=== PATIENT | female | born 1935 | race Caucasian/White ===

== ENCOUNTER → 2020-08-23 | Outpatient (CLI) | payer MEDICARE, OTHER ==
[~2020-08-23] MED LIST: ANAS1TAB2 PO; CALCTAB89 PO; DOXA1TAB41 PO; ESSETAB4 PO; FISH1000 PO; HYDR12CA PO; LORA-674 PO; LOSA50TA88 PO; METO1TAB87 PO; OMEP10CASR PO; PRAV80TA2 PO; TYLE650T38 PO; WARF4TAB52 PO; vitamin d PO
--- NOTE | 2020-08-23 12:01 | RADONC.CN ---
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 Berger. She has been dealing with persistent bleeding from her left lateral lumpectomy incision in the setting of anticoagulation for her PAF. She is seen today at the request of Dr. Casanova for consideration of adjuvant RT as she is not a chemotherapy candidate. Diagnosis/Treatment History Oncologic History 05/16/20 Screening mammogram 1.7 cm lesion in the left outer breast. 06/21/20 Core biopsy showing IDC grade 3 ER/OR/HER2+ 07/28/20 Lumpectomy without axillary staging (age and negative clinical exam) by Dr. Berger (We are obtaining the final path report, but per Dr. Casanova T1 negative margins) Breast history: Menses @ 11 1st @ 20 No HRT No OCP Menopause @ 49 Interval History Here today alone. Feels well. No postoperative pain aside from occasional fleeting discomfort in the left breast. There has been however continued oozing of blood from her lumpectomy incision. No swelling of the breast. Has been packed previously and pressure dressing applied. She continues to take coumadin for her A fib, which was diagnosed last year. Past Medical History: GERD HPL HTN PAF CAD Past Surgical History: D&C (remote) Tonsillectomy CABG Family History: Several maternal cousins with BC in their 50s-60s Social History: Never smoker Non drinker Allergies / Meds Allergies: Coded Allergies: Penicillins (Verified Allergy, Unknown, 08/23/20) Uncoded Allergies: environmental (Allergy, Mild, 08/23/20) Home Meds Active Scripts Anastrozole (Anastrozole) 1 Mg Tablet, 1 TAB PO DAILY for 30 Days, #30 TAB 5 Refills Prov:STEPHANIE CASANOVA MD 08/23/20 Reported Medications [vitamin d] No Conflict Check, 25 MG PO DAILY 08/23/20 Acetaminophen (Tylenol 8 Hour) 650 Mg Tablet.er, 650 MG PO PRN 08/23/20 Multivitamin with Folic Acid (One Daily Multivitamin Tablet) 400 Mcg Tablet, 1 T AB PO DAILY for 30 Days, #30 TAB 08/23/20 Topock-3 Fatty Acids/Fish Oil (Fish Oil 1,000 mg Capsule) 1 Each Capsule, 1 CAP PO DAILY for 30 Days, #30 CAP 08/23/20 Calcium Carbonate (Calcium) 600 Mg Tablet, 1 TAB PO BID for 30 Days, #60 TAB 08/23/20 Warfarin Sodium (Warfarin Sodium) 1 Mg Tablet, 8 MG PO DAILY for 30 Days, #30 TAB 08/23/20 Omeprazole (Omeprazole) 10 Mg Capsule.dr, 1 CAP PO DAILY for 30 Days, #30 CAP 08/23/20 Doxazosin Mesylate (Doxazosin Mesylate) 2 Mg Tablet, 1 TAB PO DAILY 08/23/20 Losartan Potassium (Losartan Potassium) 50 Mg Tablet, 1 TAB PO DAILY 08/23/20 Hydrochlorothiazide (Hydrochlorothiazide) 12.5 Mg Capsule, 1 TAB PO DAILY 08/23/20 Loratadine (Loratadine) 10 Mg Tablet, 1 TAB PO DAILY 08/23/20 Pravastatin Sodium (Pravastatin Sodium) 80 Mg Tablet, 1 TAB PO DAILY 08/23/20 Metoprolol Tartrate (Metoprolol Tartrate) 25 Mg Tablet, 1 TAB PO DAILY 08/23/20 Review of Systems Constitutional: Denies: Chills, Fever, Night Sweats Eyes: Denies: Pain, Vision change, Conjunctivae inflammation, Eyelid inflammation, Redness, Other HEENT: Denies: Head Aches, Dysphagia, Sore Throat Skin: Denies: Rash, Lesions, Bruising Pulmonary: Denies: Dyspnea, Cough Cardiovascular: Denies: Chest Pain, Palpitations, Edema Breast: Denies: Nipple Retraction, Breast Skin Changes, Breast Pain or Tenderness Gastrointestinal: Denies: Nausea, Vomiting, Abdominal Pain, Diarrhea Genitourinary: Denies: Dysuria, Frequency, Incontinence Hematologic: Reports: Bruising; Denies: Petecchia, Enlarged Lymph Nodes Musculoskeletal: Denies: Neck pain, Back pain Neurological: Denies: Weakness, Numbness, Incoordination Psych: Reports: Mood Normal; Denies: Memory Issues, Thoughts of Self Harm Vital Signs T 97.1 P 87 RR 18 BP 164/99 O2 98% General Exam: Positive: Alert, Cooperative, No Acute Distress Eye Exam: Positive: PERRLA, EOMI ENT EXAM: Positive: Mucous membr. moist/pink, Pharynx Normal Chest Exam: Positive: Normal air movement; Negative: Rales, Rhonchi, Wheezing Heart Exam: Positive: Rate Normal, Regular Rhythm Breast Exam: Positive: Symmetric Bilaterally, Other Breast Findings (Pressure dressing in place over the left lateral breast, did not take down. No axillary LN palpable BL); Negative: Lumps or Masses, Nipple Retraction, Nipple Discharge Abdomen Exam: Positive: Soft; Negative: Tenderness, Mass Extremity Exam: Negative: Edema, Tenderness Skin Exam: Positive: Nl turgor and temperature; Negative: Rash Neuro Exam: Positive: Normal Gait, Normal Speech, Cranial Nerves 3-12 NL Psych Exam: Positive: Mental status NL, Mood NL, Memory Intact Diagnostic and Laboratory Diagnostic Review Radiologic images, relevant labs and pathology reports were personally reviewed and discussed with Ms. Walters. Assessment and Plan Impression Ms. 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 Berger. She has been dealing with persistent bleeding from her left lateral l umpectomy incision in the setting of anticoagulation for her PAF. She is seen today at the request of Dr. Casanova for consideration of adjuvant RT as she is not a chemotherapy candidate. Stage Stage IA [id number] IDC grade 3 triple positive Performance Status ECOG 0 Plan We had an extensive discussion with Ms. Walters regarding the diagnosis at hand and available therapeutic options. She is fit for her age, has some cardiovascular disease. She has persistent bleeding from her incision now 3 weeks post op. I encouraged her to speak to Dr. Berger about this. Her coumadin is obviously contributing. Between Dr. Berger and cardiology they may elect to hold to allow healing. I am obtaining her final path for review so my final recommendation is pending, however by accounts and data on hand today she has a widely resected T1 tumor which is triple positive. Given her age and cardiovascular status chemotherapy has not been advised (nor does she want it per her own admission), she has agreed to anastrozole, which is risk lowering. I explained that omission of radiation at her age is very reasonable, she prefers however to receive treatment to fully minimize the risk of recurrence. I recommend that we pursue PBI, and I would give 26 Gy in 5 fractions using VMAT. This will allow full sparing of the cardiac substructures at risk. I do not anticipate any side effects other than fatigue and mild skin reaction. PBI with anastrozole strikes a good balance at minimizing risk of recurrence and toxicity, given her triple positive disease and inability to receive full systemic therapy. We discussed the logistics of receiving radiation therapy in detail including the need for a 1-time planning session. I will facilitate this in 2 weeks time to hopefully allow her to heal fully. After discussing the risks, benefits and alternatives to radiation therapy, Ms. Walters was amenable to pursuing radiotherapy. All questions were answered to the patient's satisfaction. We instructed the patient that if there were any questions,concerns or changes in clinical status in the interim to contact us. Recommendations PBI 26 Gy in 5 fractions w/ VMAT pending final pathology review Simulation week of 09/04/20 KARON ROSS MD Aug 23, 2020 12:00
== END ==
LOC: M ONCR 10:19
PROVIDERS: ATTEND General Practice
DX: C50.919 Malignant neoplasm of unspecified site of unspecified female breast (principal)

== ENCOUNTER → 2020-10-23 | Outpatient (CLI) | payer MEDICARE, OTHER ==
[~2020-10-23] MED LIST changes: +BACT800T5 PO
--- NOTE | 2020-10-24 09:43 | REP ---
INDICATION: STAGING LEFT BREAST CANCER C50.812. COMPARISON: None. TECHNIQUE: Fifty-five minutes following the intravenous injection of a 17.69 mCi dose of F-18 FDG, three-dimensional PET scintigraphy is acquired from the skull base to the proximal thighs. Triplanar noncontrast CT scanning is acquired through the same anatomic range for attenuation correction, and image registration with scan parameters optimized to minimize radiation exposure to the patient. PET scintigraphy and CT datasets were fused and displayed on a workstation with multiplanar and projection display capability. FINDINGS: Incidental CT findings include large bilateral maxillary sinus mucosal retention cysts and left colonic diverticulosis. Vascular calcification is noted. Prior sternotomy. There is a spiculated ill-defined 2.8 cm mass in the left breast which appears to be in the upper outer quadrant. This is mildly hypermetabolic. Maximum standard uptake value within this is 2.95. There is no evidence of hypermetabolic axillary or internal mammary stan uptake. No supraclavicular stan uptake is seen. No abnormal hypermetabolic uptake is seen within the thorax. Head and neck soft tissues are unremarkable. In the abdomen and pelvis, normal hepatic, splenic, gastrointestinal, and genitourinary FDG distribution is seen. No abnormal hypermetabolic uptake is seen in the abdomen or pelvis. IMPRESSION: Mildly hypermetabolic 2.8 cm left breast mass. No other abnormal hypermetabolic uptake is seen. <Electronically signed by Duc Graf > 10/24/20 0939
== END ==
LOC: M PLARAD 10:23
PROVIDERS: ATTEND Internal Medicine Hematology & Oncology
DX: C50.812 Malignant neoplasm of overlapping sites of left female breast (principal)
CPT/HCPCS: 78815; A9552